=== PATIENT | female | born 1950 | race Caucasian/White ===

== ENCOUNTER 2017-01-19 08:08 | Day surgery (SDC) | payer OTHER, MEDICARE ==
[2017-01-19] MEDS ORDERED: PROPOFOL 500 MG/50 ML EMU IV ONE (09:02)
[2017-01-19] MEDS ORDERED: PROPOFOL 10 MG/ML EMU IV ONE (09:42)
[2017-01-19 10:13] VITALS: TEMP 97.3
[2017-01-19 10:22] VITALS: RESP 14
[2017-01-19 10:53] VITALS: BP 148/75; PULSE 60; O2SAT 100
== END 2017-01-19 11:00 | disposition home or self-care (01) | DRG 392 ==
LOC: SURG 08:08
PROVIDERS: ATTEND Surgery
DX: R19.5 Other fecal abnormalities (principal); D12.2 Benign neoplasm of ascending colon; D12.5 Benign neoplasm of sigmoid colon; K62.1 Rectal polyp
CPT/HCPCS: J2704